=== PATIENT | female | born 1985 | race Caucasian/White ===

== ENCOUNTER → 2017-12-06 | Outpatient (CLI) | payer OTHER | LOC: FIMAGING 13:05 | DX: N61.1 Abscess of the breast and nipple (principal) ==

== ENCOUNTER 2017-12-07 11:48 | Day surgery (SDC) | payer OTHER ==
[2017-12-07] MEDS ORDERED: ceFAZolin 2 GM/DEXTROSE 100 ML IV ONE (11:52)
[2017-12-07] MEDS ORDERED: LIDOCAINE 1% 2 ML INJ ID PRN (11:55)
[2017-12-07] MEDS ORDERED: LR 1,000 ML IV ONE (11:55)
[2017-12-07] MEDS ORDERED: BUPIVACAINE 0.5% 30 ML SDV ONE (12:07)
--- NOTE | 2017-12-07 12:08 | PDHPUP ---
History & Physical Update H&P update statement: This history and physical update is based on an assessment of the patient which was completed after admission or registration (within 24 hours), but prior to the surgery/procedure. H&P update: H&P reviewed & patient examined, no change in patient's condition since H&P completed
[2017-12-07] MEDS ORDERED: MIDAZOLAM 2 MG/2 ML VIAL ONE (12:37)
[2017-12-07] MEDS ORDERED: MIDAZOLAM 2 MG/2 ML VIAL IVP ONE (12:37)
--- NOTE | 2017-12-07 12:39 | PDANEPAE ---
ANE History of Present Illness Right breast I and D 5 weeks post part ANE Past Medical History - Cardiovascular History Hx Hypertension: No Hx Arrhythmias: No Hx Chest Pain: No Hx Coronary Artery / Peripheral Vascular Disease: No Hx CHF / Valvular Disease: No Hx Palpitations: No Cardiovascular History Comment: pre-eclampsia - Pulmonary History Hx COPD: No Hx Asthma/Reactive Airway Disease: No Hx Recent Upper Respiratory Infection: No Hx Oxygen in Use at Home: No Hx Sleep Apnea: No - Neurologic History Hx Cerebrovascular Accident: No Hx Seizures: No Hx Dementia: No - Endocrine History Hx Diabetes: No Hypothyroid: No Hyperthyroid: No Obesity: no - Renal History Hx Renal Disorders: Yes Renal History Comment: kidney stone 2016 - Liver History Hx Hepatic Disorders: No - Neurological & Psychiatric Hx Hx Neurological and Psychiatric Disorders: No - Cancer History Hx Cancer: No - Congenital Disorder History Hx Congenital Disorders: No - GI History Hx Gastrointestinal Disorders: No - Chronic Pain History Chronic Pain: No - Surgical History Prior Surgeries: left ankle scope ANE Review of Systems Review of Systems: - Exercise capacity METS (RN): 6 METS ANE Patient History - Allergies Allergies/Adverse Reactions: No Known Drug Allergies Allergy (Verified 12/06/17 16:57) - Home Medications Home Medications: Dicloxacillin Sodium PO Q6 12/07/17 [Last Taken 12/07/17 00:00] Herbals/Supplements -Info Only 12/07/17 [Last Taken 12/05/17] Levothyroxine 100 mcg PO DAILY 12/07/17 [Last Taken 12/06/17] - NPO status NPO Since - Liquids (Date): 12/07/17 NPO Since - Liquids (Time): 08:30 NPO Since - Solids (Date): 12/07/17 NPO Since - Solids (Time): 04:00 - Smoking Hx Smoking Status: Never smoked ANE Labs/Vital Signs - Vital Signs Blood Pressure: 114/72 Heart Rate: 70 Respiratory Rate: 11 O2 Sat (%): 99 Height: 177.8 cm Weight: 62.142 kg ANE Physical Exam - Airway Neck exam: FROM Mallampati Score: Class 1 Mouth exam: normal dental/mouth exam - Pulmonary Pulmonary: no respiratory distress, no rales or rhonchi - Cardiovascular Cardiovascular: regular rate and rhythym, no murmur, rub, or gallop ANE Anesthesia Plan Anesthesia Plan: general endotracheal anesthesia
[2017-12-07] MEDS ORDERED: ROCURONIUM 50 MG/5 ML VIAL ONE (12:45)
[2017-12-07] MEDS ORDERED: PROPOFOL/EMULSION 500 MG/50 ML BOTTLE IV ONE (12:45)
[2017-12-07] MEDS ORDERED: fentaNYL 250 MCG/5 ML INJ ONE (12:45)
[2017-12-07] MEDS ORDERED: NEOSTIGMINE METHYLSULFATE 5 MG/5 ML SYR ONE (13:26)
[2017-12-07] MEDS ORDERED: ONDANSETRON 4 MG/2 ML VIAL ONE (13:28)
[2017-12-07] MEDS ORDERED: GLYCOPYRROLATE 0.2 MG/1 ML VIAL ONE ×3 (13:38)
[2017-12-07] MEDS ORDERED: KETOROLAC 30 MG/1 ML SDV ONE (13:40)
[2017-12-07] MEDS ORDERED: fentaNYL 100 MCG/2 ML INJ IVP PRN (13:55)
[2017-12-07] MEDS ORDERED: HYDROmorphONE/DILAUDID 2 MG/ML INJ IVP PRN (13:55)
[2017-12-07] MEDS ORDERED: oxyCODONE IR 5 MG TAB PO PRN (13:55)
[2017-12-07] MEDS ORDERED: ACETAMINOPHEN 500 MG TAB PO PRN (13:55)
[2017-12-07] MEDS ORDERED: ONDANSETRON 4 MG/2 ML VIAL IVP PRN (13:55)
[2017-12-07] MEDS ORDERED: NALOXONE HCL 0.4 MG/ML INJ IVP PRN (13:55)
--- NOTE | 2017-12-07 14:36 | POSTOPPROG ---
Post Op Note Date of Operation: 12/07/17 Surgeon: Martin Marshall Anesthesiologist: krys Anesthesia: GET(General Endotracheal) Pre-op Diagnosis: Left breast abscess Post-op Diagnosis: Same Indication: Pain Procedure: Left breast mastotomy and drainage of abscess Findings: Large deep left breast abscess Inf/Abcess present in the surg proc area at time of surgery?: Yes Depth: Deep Incisional (Fascial) EBL: Minimal Complications: None Drains: [place] Specimen(s): Culture
[2017-12-07 15:41] VITALS: BP 98/68
--- NOTE | 2017-12-07 15:44 | POSTANESTH ---
Post Anesthetic Evaluation Cardiovascular Status: Normal, Stable Respiratory Status: Normal, Stable Level of Consciousness/Mental Status: Can Participate in Eval Pain Control: Adequate, Prn Tx Ordered Nausea/Vomiting Control: Adequate, Prn Tx Ordered Complications Possibly Related to Anesthesia: None Noted
--- NOTE | 2017-12-10 14:24 | GOP ---
DATE OF OPERATION: 12/07/2017 SURGEON: Martin Marshall MD PREOPERATIVE DIAGNOSIS: Left breast abscess. POSTOPERATIVE DIAGNOSIS: Left breast abscess. PROCEDURE PERFORMED: Left breast mastotomy for drainage of abscess. FINDINGS: The patient has a large purulent abscess in the medial aspect of the left breast. DESCRIPTION OF PROCEDURE: Patient taken to the operating room. She received satisfactory general endotracheal anesthesia by Dr. Mata. She was placed in supine position, prepped, and draped in usual sterile fashion. A curvilinear incision was made in the medial side of the areola. Dissection extended down through the subcutaneous tissue and a large abscess cavity was entered. This was suctioned clear and cultured and irrigated with no milk leakage from the abscess cavity. A half-inch [place] drain was placed in the cavity and secured to the skin with a 3-0 Prolene suture. The wound was then dressed. She tolerated the procedure well. The wound was infiltrated with Marcaine. There were no complications. Taken to recovery room in good condition. . Copy requested to: Dr. Flakita Saenz /[id number]/MODL MTDD
== END 2017-12-07 15:55 | disposition home or self-care (01) ==
LOC: FSGY 11:48
PROVIDERS: ATTEND Surgery
PROC: 0H9U0ZZ Drainage of Left Breast, Open Approach (ICD-10-PCS; principal; 2017-12-07 13:45)
DX: N61.1 Abscess of the breast and nipple (principal); D64.9 Anemia, unspecified
CPT/HCPCS: J0690; J1885; J2250; J2405; J2704; J2710; J3010

== ENCOUNTER 2017-12-09 07:35 | Day surgery (SDC) | payer OTHER ==
--- NOTE | 2017-12-08 19:21 | GHP ---
DATE OF ADMISSION: 12/09/2017 DATE OF SURGERY: 12/09/2017. CHIEF COMPLAINT: Breast abscess. HISTORY OF PRESENT ILLNESS: This is a 32-year-old female who is x4 weeks and originally presented to our office on Monday of this week for evaluation of left breast abscesses that have been persistent for approximately 10-12 days. She underwent an ultrasound that revealed a 4.5 x 4.1 x 3.8 cm multiloculated abscess in the left medial breast that appeared to be connected to a left lateral breast abscess measuring 6.2 x 5.9 x 3.8 cm. She underwent surgical I&D yesterday in the operating room by Dr. Marshall. The patient presented to our office today complaining of increased redness and tenderness in the lateral breast area. She does report that the area in the medial breast underneath her incision feels improved since having surgery yesterday. She is very tearful and is wondering if she needs to undergo another operation to have the lateral abscess drained. In addition, the patient is nursing and is asking for guidance on how to maintain a seal for pumping. The patient denies fever and chills. REVIEW OF SYSTEMS: 10-point review of systems was performed and was negative, except what is in the HPI. PAST MEDICAL HISTORY: Anemia, mononucleosis. PAST SURGICAL HISTORY: Arthroscopic ankle surgery, left medial breast abscess, I and D. MEDICATION LIST: Supplements, Thyro-Zyme, dicloxacillin. ALLERGY: No known drug allergies. FAMILY HISTORY: Noncontributory. SOCIAL HISTORY: This patient is . 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 She is a nonsmoker. PHYSICAL EXAMINATION: GENERAL: This is a 32-year-old female in no acute distress. HEENT: Normocephalic, atraumatic. No gross hearing deficits. Mucous membranes moist. Pupils are equal and round. No scleral icterus. CARDIAC: Regular rate and rhythm. No clicks, murmurs, or rubs: RESPIRATORY: Clear to auscultation bilaterally. No increased work of breathing. ABDOMEN: Soft, nontender. No palpable masses. BREASTS: The left breast has an open incision just medial to the areola in the 9 o'clock position with a [place] drain in place. There is also an area of marked erythema, tenderness, and induration in the left lateral breast, consistent with an additional abscess. SKIN: Warm and dry, no rashes. MUSCULOSKELETAL: Moves all extremities equally. NEUROLOGIC: She is alert and oriented x3. PSYCHIATRIC: The patient is teary, but has an appropriate affect. DISCUSSION AND DECISION-MAKING: This is a patient who had surgery to drain a left medial breast abscess in the operating room yesterday. She presented to our office today complaining of worsening of pain over the lateral aspect of her left breast. It appears that there is an additional abscess that warrants incision and drainage in the operating room. The patient was seen by Dr. Lassiter and myself in our office. Dr. Lassiter discussed all risks and options with the patient, including the option of performing an I and D in the office or taking the patient to the operating room. The patient opted to return to the operating room. Risks of surgery include, but are not limited to infection, bleeding, hematoma, heart attack, and . Patient understands and wishes to proceed. We will plan for surgery tomorrow morning. /[id number]/MODL MTDD
[2017-12-09] MEDS ORDERED: CEFAZOLIN 2 GM/DEXTROSE/100 ML BAG IV ONE (08:13)
[2017-12-09] MEDS ORDERED: ceFAZolin 2 GM/DEXTROSE 100 ML IV ONE (08:19)
[2017-12-09] MEDS ORDERED: LR 1,000 ML IV ONE (08:20)
[2017-12-09] MEDS ORDERED: MIDAZOLAM 2 MG/2 ML VIAL IVP ONE (09:29)
--- NOTE | 2017-12-09 09:29 | PDANEPAE ---
ANE History of Present Illness 32 YO for breast i d ANE Past Medical History - Cardiovascular History Hx Hypertension: No Hx Arrhythmias: No Hx Chest Pain: No Hx Coronary Artery / Peripheral Vascular Disease: No Hx CHF / Valvular Disease: No Hx Palpitations: No Cardiovascular History Comment: pre-eclampsia - Pulmonary History Hx COPD: No Hx Asthma/Reactive Airway Disease: No Hx Recent Upper Respiratory Infection: No Hx Oxygen in Use at Home: No Hx Sleep Apnea: No - Neurologic History Hx Cerebrovascular Accident: No Hx Seizures: No Hx Dementia: No - Endocrine History Hx Diabetes: No - Renal History Hx Renal Disorders: Yes Renal History Comment: kidney stone 2016 - Liver History Hx Hepatic Disorders: No - Neurological & Psychiatric Hx Hx Neurological and Psychiatric Disorders: No - Cancer History Hx Cancer: No - Congenital Disorder History Hx Congenital Disorders: No - GI History Hx Gastrointestinal Disorders: No - Chronic Pain History Chronic Pain: No - Surgical History Prior Surgeries: left ankle scope ANE Review of Systems Review of Systems: - Exercise capacity METS (RN): 4 METS ANE Patient History - Allergies Allergies/Adverse Reactions: No Known Drug Allergies Allergy (Verified 12/06/17 16:57) - Home Medications Home medications: home medication list seen and reviewed Home Medications: Dicloxacillin Sodium PO Q6 12/07/17 [Last Taken 12/07/17 00:00] Herbals/Supplements -Info Only 12/07/17 [Last Taken 12/05/17] Levothyroxine 100 mcg PO DAILY 12/07/17 [Last Taken 12/06/17] - NPO status NPO Status: no food or drink >8 hours NPO Since - Liquids (Date): 12/09/17 NPO Since - Liquids (Time): 01:00 NPO Since - Solids (Date): 12/08/17 NPO Since - Solids (Time): 23:30 - Anes Hx Anes Hx: post operative nausea, post operative nausea and vomiting - Smoking Hx Smoking Status: Never smoked ANE Labs/Vital Signs - Vital Signs Blood Pressure: 104/63 Heart Rate: 67 Respiratory Rate: 16 O2 Sat (%): 96 Height: 5 ft 10 in Weight: 62.596 kg ANE Physical Exam - Airway Neck exam: FROM Mallampati Score: Class 2 - Pulmonary Pulmonary: no respiratory distress - Cardiovascular Cardiovascular: regular rate and rhythym - ASA Status ASA Status: II ANE Anesthesia Plan Anesthesia Plan: GA w LMA
[2017-12-09] MEDS ORDERED: SCOPOLAMINE HYDROBROMIDE 1 MG/3 DAYS PATCH TD SCH (09:30)
[2017-12-09] MEDS ORDERED: MIDAZOLAM 2 MG/2 ML VIAL ONE (09:32)
[2017-12-09] MEDS ORDERED: SCOPOLAMINE HYDROBROMIDE 1 MG/3 DAYS PATCH TD ONE (09:32)
[2017-12-09] MEDS ORDERED: BUPIVACAINE 0.5% 30 ML SDV ONE (09:35)
[2017-12-09] MEDS ORDERED: fentaNYL 100 MCG/2 ML INJ ONE (09:39)
[2017-12-09] MEDS ORDERED: PROPOFOL/EMULSION 500 MG/50 ML BOTTLE IV ONE (09:39)
[2017-12-09] MEDS ORDERED: NALOXONE HCL 0.4 MG/ML INJ IVP PRN (10:05)
[2017-12-09] MEDS ORDERED: ONDANSETRON 4 MG/2 ML VIAL IVP PRN (10:05)
[2017-12-09] MEDS ORDERED: fentaNYL 100 MCG/2 ML INJ IVP PRN (10:05)
[2017-12-09] MEDS ORDERED: HYDROCODONE/APAP 5/325 TAB PO PRN (10:05)
--- NOTE | 2017-12-09 10:25 | POSTOPPROG ---
Post Op Note Date of Operation: 12/09/17 Surgeon: Melvi Lassiter Anesthesiologist: john Anesthesia: GET(General Endotracheal) Pre-op Diagnosis: L breast abscess Post-op Diagnosis: L breast abscess Indication: 32 yo post with abscess Procedure: incision and drainage lateral abscess Findings: 6 cm abscess Inf/Abcess present in the surg proc area at time of surgery?: Yes Depth: Deep Incisional (Fascial) EBL: Minimal Specimen(s): none
--- NOTE | 2017-12-09 10:44 | GOP ---
DATE OF OPERATION: 12/09/2017 SURGEON: Melvi Lassiter MD ANESTHESIA: General. ANESTHESIOLOGIST: Joan Chacon MD PREOPERATIVE DIAGNOSIS: Left breast abscess. POSTOPERATIVE DIAGNOSIS: Left breast abscess. PROCEDURE PERFORMED: Wound exploration, medial incision, and incision and drainage, lateral abscess. FINDINGS: Greater than a 6 cm abscess on the left breast. No obvious communication between medial and lateral abscesses. SPECIMENS: None. ESTIMATED BLOOD LOSS: 5. INDICATIONS: The patient is a 32-year-old, who is and lactating, who developed a large abscess laterally. She then developed 1 medially. She had ultrasound obtained which showed 2 fluid collections that possibly communicated. She went to the operating room and had the medial abscess drained. She continued to have incredible discomfort and induration on the lateral aspect. I took her to the operating room to explore this area. DESCRIPTION OF PROCEDURE: The patient was brought into the operating room, placed supine on the table, and general anesthesia was administered. Her breast was prepped and draped in the usual sterile fashion. I removed the [place] drain. I explored the medial pocket which was well drained. I then made an incision over the lateral aspect, and a large pressurized fluid collection was immediately expressed. The abscess cavity measures about 6 cm. There was no communication. Both cavities were copiously irrigated and packed with Hydrofera Blue. I mannually expressed her milk to decompress the breast. Dressings applied. She was awakened in the operating room, extubated, and transferred to PACU in stable condition. /[id number]/MODL MTDD
[2017-12-09 12:11] VITALS: BP 115/66
[2017-12-12] MEDS ORDERED: PATCH REMOVAL 1 EA PATCH TD SCH (09:30)
== END 2017-12-09 12:19 | disposition home or self-care (01) ==
LOC: FSGY 07:35
PROVIDERS: ATTEND Surgery
PROC: 0H9U0ZZ Drainage of Left Breast, Open Approach (ICD-10-PCS; principal; 2017-12-09 09:30)
DX: O91.13 Abscess of breast associated with lactation (principal)
CPT/HCPCS: J0690; J2250; J2704; J3010

== ENCOUNTER 2017-12-10 16:24 | Emergency (ER) | payer OTHER ==
--- NOTE | 2017-12-10 17:29 | EDPHY ---
H & P Stated Complaint: mastitis-on cillin x 3 weeks Time Seen by Provider: 12/10/17 16:38 HPI/ROS: CHIEF COMPLAINT: Right mastitis HISTORY OF PRESENT ILLNESS: 32-year-old breast-feeding female presents with right-sided mastitis. Onset of right mastitis 4 weeks ago, initially treated with antibiotics and resolved. She then developed mastitis and breast abscess on the left. Status post I and D x2 left breast, most recently yesterday. Onset of right breast pain yesterday, increased today. Associated with erythema. No fever. On dicloxacillin. REVIEW OF SYSTEMS: complete 10 point ROS reviewed and is negative except for the noted elements in the HPI - Personal History LMP (Females 10-55): Unknown - Medical/Surgical History Hx Asthma: No Hx Chronic Respiratory Disease: No Hx Diabetes: No Hx Cardiac Disease: No Hx Renal Disease: No Hx Cirrhosis: No Hx Alcoholism: No Hx HIV/AIDS: No Hx Splenectomy or Spleen Trauma: No Other PMH: I&D 12/14. hypothyroid - Social History Smoking Status: Never smoked Additional Social History: - Physical Exam Exam: General Appearance: Alert, pleasant, nontoxic-appearing Eyes: Pupils equal and round, no conjunctival pallor or injection ENT, Mouth: Mucous membranes moist Neck: Normal inspection Respiratory: Lungs are clear to auscultation Breast: Left breast -2 bandages present, no tenderness or swelling; right breast erythema, tenderness and swelling approximately 4 cm around the areola, associated with firm tenderness of the inner and upper aspect of the breast, no fluctuance Cardiovascular: Regular rate and rhythm Gastrointestinal: Abdomen is soft and nontender Neurological: A&O, nonfocal, normal gait Skin: Warm and dry, no rash Extremities: Nontender, no pedal edema Psychiatric: Mood and affect normal Constitutional: Initial Vital Signs Temperature (C) 37.4 C 12/10/17 16:30 Heart Rate 103 H 12/10/17 16:30 Respiratory Rate 18 12/10/17 16:30 Blood Pressure 113/70 12/10/17 16:30 O2 Sat (%) 98 12/10/17 16:30 O2 Delivery Mode Room Air Allergies/Adverse Reactions: No Known Drug Allergies Allergy (Verified 12/06/17 16:57) Home Medications: Medication Instructions Recorded Dicloxacillin Sodium PO Q6 12/07/17 Levothyroxine 100 mcg PO DAILY 12/07/17 Medical Decision Making - Diagnostics Imaging Results: Imaging Impressions Breast Ultrasound 12/10/17 17:25 Impression: 1. Right breast retroareolar 5 cm abscess. 2. ACR BI-RADS 2: Benign findings. Findings and recommendations discussed with Emergency Department physician, TAMIKO GONZALEZ at 1817 hour , and Dr. Melvi Granados at 1814 hours, 12/10/2017. Final report concurs with initial preliminary interpretation. Imaging: Discussed imaging studies w/ call center recruiter Radiologist ED Course/Re-evaluation: This patient presents with recurrent mastitis of the right breast. Currently on dicloxacillin. Concerning for recurrent abscess. Right breast ultrasound ordered. Tylenol given for fever. Ultrasound results discussed with the patient. Dr. Melvi Lassiter was consulted and saw the patient in the emergency department. Abscess I and D by Dr. Lassiter. Fentanyl 50 mcg IV and Ancef 1 g IV given. She will stop Diclox, take Keflex (already has a prescription) and will follow up with Dr. Lassiter in the office. Differential Diagnosis: includes though not limited to mastitis, cellulitis, abscess - Data Points Laboratory Results: Laboratory Results 12/10/17 17:25 12/10/17 17:25 12/10/17 12/10/17 17:25 17:25 WBC 18.32 10^3/uL H 10^3/uL (3.80-9.50) RBC 3.41 10^6/uL L 10^6/uL (4.18-5.33) Hgb 9.2 g/dL L g/dL (12.6-16.3) Hct 28.6 % L % (38.0-47.0) MCV 83.9 fL fL (81.5-99.8) MCH 27.0 pg L pg (27.9-34.1) MCHC 32.2 g/dL L g/dL (32.4-36.7) RDW 14.2 % % (11.5-15.2) Plt Count 313 10^3/uL 10^3/uL (150-400) MPV 9.6 fL fL (8.7-11.7) Neut % (Auto) 82.1 % H % (39.3-74.2) Lymph % (Auto) 6.4 % L % (15.0-45.0) [place] % (Auto) 7.5 % % (4.5-13.0) Eos % (Auto) 3.4 % % (0.6-7.6) Baso % (Auto) 0.3 % % (0.3-1.7) Nucleat RBC Rel Count 0.0 % % (0.0-0.2) Absolute Neuts (auto) 15.04 10^3/uL H 10^3/uL (1.70-6.50) Absolute Lymphs (auto) 1.17 10^3/uL 10^3/uL (1.00-3.00) Absolute Monos (auto) 1.37 10^3/uL H 10^3/uL (0.30-0.80) Absolute Eos (auto) 0.63 10^3/uL H 10^3/uL (0.03-0.40) Absolute Basos (auto) 0.05 10^3/uL 10^3/uL (0.02-0.10) Absolute Nucleated RBC 0.00 10^3/uL 10^3/uL (0-0.01) Immature Gran % 0.3 % % (0.0-1.1) Immature Gran # 0.06 10^3/uL 10^3/uL (0.00-0.10) Sodium 139 mEq/L mEq/L (135-145) Potassium 3.7 mEq/L mEq/L (3.3-5.0) Chloride 101 mEq/L mEq/L (97-110) Carbon Dioxide 29 mEq/l mEq/l (22-31) Anion Gap 9 mEq/L mEq/L (6-14) BUN 7 mg/dL mg/dL (7-23) Creatinine 0.7 mg/dL mg/dL (0.6-1.0) Estimated GFR > 60 Glucose 118 mg/dL H mg/dL (70-100) Calcium 8.8 mg/dL mg/dL (8.5-10.4) Microbiology Results: MICROBIOLOGY 12/10/17 19:04 Other - Aspirate Gram Stain - Final Medications Given: Discontinued Medications Fentanyl (Sublimaze) 50 mcg IVP EDNOW ONE Stop: 12/10/17 17:42 Last Admin: 12/10/17 17:51 Dose: 100 mcg Cefazolin Sodium/Dextrose (Ancef 1 Gm (Premix)) 50 mls @ 200 mls/hr IV EDNOW ONE PRN Reason: Protocol Stop: 12/10/17 18:57 Last Admin: 12/10/17 19:16 Dose: 50 mls Ibuprofen (Motrin) 600 mg PO EDNOW ONE Stop: 12/10/17 17:40 Last Admin: 12/10/17 17:50 Dose: 600 mg Departure - Departure Disposition: Home, Routine, Self-Care Clinical Impression: Mastitis, Breast abscess Condition: Fair Instructions: Mastitis (ED) Additional Instructions: Take Keflex as prescribed. Ibuprofen 600 mg 3 times daily while the fever and pain persist. Referrals: MEME JARAMILLO [Primary Care Provider] - As per Instructions Melvi Lassiter MD [Medical Doctor] - As per Instructions
[2017-12-10] MEDS ORDERED: IBUPROFEN 600 MG TAB PO ONE (17:39)
[2017-12-10] MEDS ORDERED: fentaNYL 100 MCG/2 ML INJ IVP ONE (17:41)
[2017-12-10 17:44] LABS: PLATELET COUNT 313 10^3/uL (150-400)
[2017-12-10 19:46] VITALS: BP 113/65
--- NOTE | 2017-12-10 21:07 | GPN ---
DATE OF PROCEDURE: 12/10/2017 ANESTHESIA: 1% lidocaine with epinephrine. PREOPERATIVE DIAGNOSIS: Right breast subareolar abscess. POSTOPERATIVE DIAGNOSIS: Right breast subareolar abscess. PROCEDURE PERFORMED: Incision and drainage of subareolar abscess. SPECIMENS: Fluid for microbiology. ESTIMATED BLOOD LOSS: 5 cc. INDICATIONS: The patient is a 32-year-old who is about 4 weeks . She has had 2 abscesses drained on her left breast and yesterday had no symptoms on her right breast. Today, the right breas t became more heavy and quickly became extremely painful. She presented to the ER. Ultrasound obtai donis, which showed a loculated abscess. We discussed aspiration versus bedside incision and drainage versus going to the operating room. DESCRIPTION OF PROCEDURE: Patient was in the ER. The breast was prepped with Betadine, and I inject ed the area with 10 cc of 1% lidocaine. I initially performed needle aspiration to reduce the pressu re. I then made a periareolar incision and broke up the loculations with a clamp. I performed irrig ation. The wound was packed with 1-inch Nu Gauze and dressing applied. I also changed the dressings on her left breast. She tolerated the procedure well. /[id number]/MODL
== END 2017-12-10 19:46 | disposition home or self-care (01) ==
PROC: 0H9T0ZZ Drainage of Right Breast, Open Approach (ICD-10-PCS; principal; 2017-12-10)
DX: N61.1 Abscess of the breast and nipple (principal); Z87.42 Personal history of other diseases of the female genital tract
CPT/HCPCS: 96365; J0690; J3010